=== PATIENT | male | born 1975 | race Hispanic/Latino ===

== ENCOUNTER 2019-09-12 15:52 | Emergency (ER) | payer SELFPAY ==
[2019-09-12] MEDS ORDERED: BUPIVACAINE 0.5% PF 10 ML VIAL ONE (16:43)
[2019-09-12] MEDS ORDERED: TETANUS & DIPHTHERIA TOX,ADULT 0.5 ML VIAL ONE (16:44)
[2019-09-12] MEDS ORDERED: LIDOCAINE 1% MPF 30 ML VIAL ONE (16:44)
--- NOTE | 2019-09-12 17:33 | RAD REPORT ---
EXAM DESCRIPTION: RAD - Femur Left - 09/12/2019 5:09 pm CLINICAL HISTORY: rule out fb, laceration COMPARISON: None. FINDINGS: No fracture is identified. There is no dislocation or periosteal reaction noted. No acute or suspicious bony finding. No air or foreign body in the soft tissues. IMPRESSION: Negative left femur examination.
[2019-09-12 18:04] VITALS: BP 140/87; TEMP 98; O2SAT 100
--- NOTE | 2019-09-16 16:06 | ER ---
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 Bleeding controlled. States it happened on his job. He needs drug screen and ETOH level. Coronavirus screen: Proceed with normal triage. Patient denies a cough. Patient denies shortness of breath or difficulty breathing. Patient denies measured and/or subjective temperature greater than 100.4F prior to today's visit. Patient denies travel on a cruise ship or to a country the [facility] currently lists as an affected area. Patient denies contact with known and/or suspected case of COVID-19. Ebola Screen: Patient denies travel to an Ebola-affected area in the 21 days before illness onset. Complicating Factors: There are no complicating factors for this patient. Initial Sepsis Screen: Does the patient meet any 2 criteria? No. Patient's initial sepsis screen is negative. Risk Assessment: Do you want to hurt yourself or someone else? Patient reports no desire to harm self or others. Onset of symptoms was September 12, 2019. 15:59 Method Of Arrival: Ambulatory ll1 15:59 Acuity: JOAN 4 ll1 16:02 Initial Sepsis Screen: Does the patient have a suspected source of infection? No. ll1 Patient's initial sepsis screen is negative. Historical: - Allergies: 16:01 No Known Allergies; ll1 - PSHx: 16:01 None; ll1 - Immunization history:: Last tetanus immunization: unknown. - Social history:: Smoking status: Patient denies any tobacco usage or history of. Patient/guardian denies using alcohol, street drugs, tobacco products. Screenin:10 Abuse screen: Denies threats or abuse. Nutritional screening: No deficits noted. em Tuberculosis screening: No symptoms or risk factors identified. Fall Risk None identified. Assessment: 16:10 General: Appears in no apparent distress. uncomfortable, Behavior is calm, cooperative, em appropriate for age. Pain: Complains of pain in lateral aspect of left knee Pain currently is 5 out of 10 on a pain scale. Neuro: Level of Consciousness is awake, alert, obeys commands, Oriented to person, place, time, situation, Appropriate for age. Cardiovascular: Capillary refill < 3 seconds Patient's skin is warm and dry. Respiratory: Airway is patent Respiratory effort is even, unlabored, Respiratory pattern is regular, symmetrical. GI: Abdomen is flat. Derm: Skin is intact, is healthy with good turgor, Skin is pink, warm \T\ dry. Wound noted lateral aspect of left knee. Musculoskeletal: Capillary refill < 3 seconds, Range of motion: intact in all extremities. Injury Description: Laceration sustained to lateral aspect of left knee is clean, 2.6 to 7.5 cm long, bleeding moderately, was sustained 1-2 hours ago. is bleeding a small amount. 17:10 Reassessment: Patient appears in no apparent distress at this time. Patient and/or em family updated on plan of care and expected duration. Pain level reassessed. Patient is alert, oriented x 3, equal unlabored respirations, skin warm/dry/pink. Vital Signs: 15:59 BP 140 / 87; Pulse 79; Resp 17; Temp 98.0; Pulse Ox 100% ; Pain 5/10; ll1 ED Course: 15:55 Patient arrived in ED. fj1 16:01 Triage completed. ll1 16:02 Arm band placed on Patient placed in an exam room, on a stretcher. ll1 16:04 Darci Chiang PA is PHCP. [facility] 16:04 Keanu Zuniga MD is Attending Physician. [facility] 16:10 Jerry Chirinos, RN is Primary Nurse. em 16:10 Patient has correct armband on for positive identification. Placed in gown. Bed in low em position. Call light in reach. Side rails up X2. 17:10 Femur Left XRAY In Process Unspecified. EDMS 17:30 Assist provider with laceration repair on lateral aspect of left knee that was between em 2.6 to 7.5 cm using bianca. Set up tray. Performed by Darci STROUD Dressed with 4X4s, Kerlix, Neosporin, Patient tolerated well. 17:50 Dressings: Kerlix non-adherent dressing x 2 left leg. kj1 17:56 Patient did not have IV access during this emergency room visit. em Administered Medications: 16:48 Drug: Tetanus-Diphtheria Toxoid Ped 0.5 ml {[employer] Chair: [employer]. Exp: em 05/31/2021. Lot #: [id number]. } Route: IM; Site: left deltoid; 17:10 Follow up: Response: No adverse reaction em 16:50 Drug: Marcaine (0.5 %) 10 ml {Note: administered by PA. Darci} Volume: 10 ml; Route: em Infiltration; 17:10 Follow up: Response: No adverse reaction; Pain is decreased em 16:50 Drug: Lidocaine (1 %) 20 ml {Note: administered by PA. Darci} Volume: 20 ml; Route: em Infiltration; 17:10 Follow up: Response: No adverse reaction; Marked relief of symptoms; Pain is decreased em Outcome: 17:46 Discharge ordered by . robb 17:55 Discharged to home ambulatory. em 17:55 Condition: stable 17:55 Discharge instructions given to patient, Instructed on discharge instructions, follow up and referral plans. medication usage, wound care, Demonstrated understanding of instructions, follow-up care, medications, wound care, Prescriptions given X 2. 17:59 Patient left the ED. em Signatures: Dispatcher [employer] EDMS Darci Chiang PA PA jmm Munoz, Edgar, ISSAC RN Chelo Tamez kj1 Anselmo Ojeda fj1 Xavier Villagran RN RN ll1 Corrections: (The following items were deleted from the chart) 16:02 15:59 Chief complaint: Patient states: Left leg laceration 1.5 hours [employer]AX [employer]. Cutting tress ll1 and blade hit left leg. Bleeding controlled. ll1
--- NOTE | 2019-09-16 16:06 | EDPHYS ---
Physician Documentation [facility] Name: Sher Rojas Age: 44 yrs Sex: Male : 1975 Arrival Date: 09/12/2019 Time: 15:55 Bed 8 Private MD: ED Physician Keanu Zuniga HPI: 09/11 16:23 This 44 yrs old Male presents to ER via Ambulatory with complaints of jmm Laceration To Leg. 16:23 The patient has a laceration related to: working, occurred at work. Onset: The jmm symptoms/episode began/occurred acutely, just prior to arrival. Associated signs and symptoms: Pertinent negatives: heavy bleeding, loss of consciousness, numbness distal to injury, suspected foreign body. 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 Denies other injury. . Historical: - Allergies: 16:01 No Known Allergies; ll1 - PSHx: 16:01 None; ll1 - Immunization history:: Last tetanus immunization: unknown. - Social history:: Smoking status: Patient denies any tobacco usage or history of. Patient/guardian denies using alcohol, street drugs, tobacco products. ROS: 16:23 Constitutional: Negative for fever, chills, and weight loss, Cardiovascular: Negative jmm for chest pain, palpitations, and edema, Respiratory: Negative for shortness of breath, cough, wheezing, and pleuritic chest pain. 16:23 MS/extremity: Positive for laceration. 16:23 Skin: Positive for laceration(s). 16:23 All other systems are negative. Exam: 16:23 Constitutional: This is a well developed, well nourished patient who is awake, alert, jmm and in no acute distress. Head/Face: atraumatic. Eyes: EOMI, no conjunctival erythema appreciated ENT: Moist Mucus Membranes Neck: Trachea midline, Supple Chest/axilla: Normal chest wall appearance and motion. Cardiovascular: Regular rate and rhythm. No edema appreciated Respiratory: Normal respirations, no respiratory distress appreciated Abdomen/GI: Non distended, soft Back: Normal ROM 16:23 Skin: 6 cm laceration noted to the left thigh, mild bleeding noted. 16:23 Neuro: Orientation: is normal, Mentation: is normal, Memory: is normal. 16:23 Psych: Behavior/mood is pleasant, cooperative. Vital Signs: 15:59 BP 140 / 87; Pulse 79; Resp 17; Temp 98.0; Pulse Ox 100% ; Pain 5/10; ll1 Laceration: 17:43 Wound Repair of 6cm ( 2.4in ) subcutaneous laceration to left leg. Distal jmm neuro/vascular/tendon intact. Anesthesia: Local anesthetic administered with 2 mls of Lido/Marcaine, Local anesthetic administered with 20 mls of Lido/Marcaine. Wound prep: Extensive cleansing, Copious irrigation. Skin closed with 5 4-0 Prolene using simple sutures and sterile technique. Patient tolerated well. MDM: 16:10 Patient medically screened. [facility] 17:43 Data reviewed: vital signs, nurses notes. Counseling: I had a detailed discussion with robb the patient and/or guardian regarding: the historical points, exam findings, and any diagnostic results supporting the discharge/admit diagnosis, radiology results, the need for outpatient follow up, to return to the emergency department if symptoms worsen or persist or if there are any questions or concerns that arise at home. ED course: Wound loosely approximated. Patient advised to follow up with pcp for close follow up and otherwise advised to return to the ED for reevaluation if he develops signs of infection. Patient understood and agrees with the plan of care. . 09/11 16:16 Order name: Femur Left XRAY; Complete Time: 17:51 [facility] 09/11 16:16 Order name: Misc. Order: irrigation setup; Complete Time: 17:54 [facility] Administered Medications: 16:48 Drug: Tetanus-Diphtheria Toxoid Ped 0.5 ml {Dentist/Owner: Juv Acessórios. Exp: em 05/31/2021. Lot #: [id number]. } Route: IM; Site: left deltoid; 17:10 Follow up: Response: No adverse reaction em 16:50 Drug: Marcaine (0.5 %) 10 ml {Note: administered by PA. Darci} Volume: 10 ml; Route: em Infiltration; 17:10 Follow up: Response: No adverse reaction; Pain is decreased em 16:50 Drug: Lidocaine (1 %) 20 ml {Note: administered by PA. Darci} Volume: 20 ml; Route: em Infiltration; 17:10 Follow up: Response: No adverse reaction; Marked relief of symptoms; Pain is decreased em Disposition: 09/12/19 17:46 Discharged to Home. Impression: Leg Laceration. - Condition is Stable. - Discharge Instructions: Laceration Care, Adult. - Prescriptions for Augmentin 875- 125 mg Oral Tablet - take 1 tablet by ORAL route every 12 hours for 10 days; 20 tablet. Bactrim DS 800- 160 mg Oral Tablet - take 1 tablet by ORAL route every 12 hours for 10 days; 20 tablet. - Medication Reconciliation Form, Thank You Letter, Antibiotic Education, Prescription Opioid Use form. - Work release form (09/13/19 11:05). bd - Follow up: Private Physician; When: 1 week; Reason: Recheck today's complaints, Continuance of care, Staple/Suture removal, Re-evaluation by your physician. Addendum: 09/14/2019 07:55 Co-signature as Attending Physician, Keanu Zuniga MD I agree with the assessment and k dr plan of care. Signatures: Dispatcher [employer] EDGA Keanu Zuniga MD MD kdr Mickail, Joel, PA PA Jerry Serrano, RN RN Xavier Osman RN RN [facility] Lissette Hilario Corrections: (The following items were deleted from the chart) 09/11 17:59 17:46 09/12/2019 17:46 Discharged to Home. Impression: Leg Laceration. Condition is em Stable. Forms are Medication Reconciliation Form, Thank You Letter, Antibiotic Education, Prescription Opioid Use. Follow up: Private Physician; When: 1 week; Reason: Recheck today's complaints, Continuance of care, Staple/Suture removal, Re-evaluation by your physician. [facility]
== END 2019-09-12 17:59 | disposition home or self-care (01) ==
LOC: ER 15:52
PROC: 0JQM0ZZ Repair Left Upper Leg Subcutaneous Tissue and Fascia, Open Approach (ICD-10-PCS; principal; 2019-09-12)
DX: S71.112A Laceration without foreign body, left thigh, initial encounter (principal); W45.8XXA Other foreign body or object entering through skin, initial encounter; Y93.89 Activity, other specified; Y92.89 Other specified places as the place of occurrence of the external cause; Z23 Encounter for immunization
CPT/HCPCS: 90471; 90714; 99284